=== PATIENT | male | born 1985 | race Caucasian/White ===

== ENCOUNTER 2017-11-15 04:06 | Emergency (ER) | payer SELFPAY ==
[~2017-11-15 04:06] MED LIST: ALBU2.5V44 IH; ALBUDR INH; AMOX-362 PO; CEP500 PO; CLIN300C99 PO; CYCL10TA29 PO; DESV50TA9 PO; DOC100 PO; HYDR-4309 PO; LOR5 PO; LOR5/325 PO; MULT1CAP41 PO; NAPR500T75 PO; NO HOME MEDS; NO MEDS; OXYC-865 PO; OXYC-869 PO; PENI-24 PO; TRAM-420 PO; TRAM-627 PO; VITAMIN PO
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
--- NOTE | 2017-11-15 04:59 | RADIOLOGY IMAGING REPORT ---
FACILITY: [facility] [place] PATIENT NAME: Curt López : 1985 MR: [id number] V: [id number] EXAM DATE: ORDERING PHYSICIAN: CARO CONCEPCION TECHNOLOGIST: Location: [facility] [place] Patient: Curt López : 1985 Visit/Account:[id number] Date of Sevice: 11/15/2017 HAND COMPLETE RIGHT WRIST RIGHT MIN 3 VIEW Indication: Right hand pain. Right wrist pain. Comparison: None Available Findings: Right hand: 3 views. No evidence of acute fracture, dislocation, or radiopaque foreign body. Normal m ineralization, joint spaces, and alignment. Right wrist: 3 views. No evidence of acute fracture, dislocation, or radiopaque foreign body. Normal mineralization, joint spaces, and alignment. IMPRESSION: Negative right hand and right wrist radiographs. Report Dictated By: Mak Valdez MD at 11/15/2017 4:51 AM Report E-Signed By: Mak Valdez MD at 11/15/2017 4:55 AM WSN:[id number]
--- NOTE | 2017-11-15 04:59 | RADIOLOGY IMAGING REPORT ---
FACILITY: [facility] PATIENT NAME: Curt López : 1985 MR: [id number] V: [id number] EXAM DATE: ORDERING PHYSICIAN: CARO CONCEPCION TECHNOLOGIST: Location: [facility] Patient: Curt López : 1985 Visit/Account:[id number] Date of Sevice: 11/15/2017 HAND COMPLETE RIGHT WRIST RIGHT MIN 3 VIEW Indication: Right hand pain. Right wrist pain. Comparison: None Available Findings: Right hand: 3 views. No evidence of acute fracture, dislocation, or radiopaque foreign body. Normal m ineralization, joint spaces, and alignment. Right wrist: 3 views. No evidence of acute fracture, dislocation, or radiopaque foreign body. Normal mineralization, joint spaces, and alignment. IMPRESSION: Negative right hand and right wrist radiographs. Report Dictated By: Mak Valdez MD at 11/15/2017 4:51 AM Report E-Signed By: Mak Valdez MD at 11/15/2017 4:55 AM WSN:[id number]
[2017-11-15] MEDS ORDERED: ACET/HYDROC 5/325MG TH ER ONLY 2 TAB/BOTTLE PO ONE (05:05)
[2017-11-15] MEDS ORDERED: LOR5/325 PO (05:05)
[2017-11-15 05:09] VITALS: BP 138/88
== END 2017-11-15 05:18 | disposition home or self-care (01) ==
LOC: ER 04:34
DX: S60.221A Contusion of right hand, initial encounter (principal); S63.501A Unspecified sprain of right wrist, initial encounter; W22.8XXA Striking against or struck by other objects, initial encounter
CPT/HCPCS: 99282

== ENCOUNTER 2017-12-27 13:56 | Emergency (ER) | payer SELFPAY ==
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
[2017-12-27] MEDS ORDERED: DIPHTH/TETANUS/ACEL. PERTUSSIS IM ONLY ONE (14:40)
[2017-12-27 15:30] VITALS: BP 117/96
== END 2017-12-27 15:50 | disposition home or self-care (01) ==
LOC: ER 14:18
DX: S01.21XA Laceration without foreign body of nose, initial encounter (principal); W20.8XXA Other cause of strike by thrown, projected or falling object, initial encounter
CPT/HCPCS: 90471; 90715; 99283

== ENCOUNTER 2018-01-13 22:11 | Emergency (ER) | payer SELFPAY ==
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
[2018-01-13 22:22] VITALS: BP 142/103
[2018-01-13] MEDS ORDERED: LORazepam 1 MG TAB PO ONE (22:30)
[2018-01-13 22:48] LABS: PLATELET COUNT, AUTOMATED 199 K/uL (150-450)
== END 2018-01-13 23:00 ==
LOC: ER 22:26
DX: F32.9 Major depressive disorder, single episode, unspecified (principal); R45.851 Suicidal ideations; F41.9 Anxiety disorder, unspecified
CPT/HCPCS: 36415; 80305; 80320; 80329; 81001; 82040; 82247; 82310; 82374; 82435; 82565; 82947; 83735; 84075; 84132; 84155; 84295; 84443; 84450; 84460; 84520; 85025; 99283